=== PATIENT | male | born 1935 | race Caucasian/White ===

== ENCOUNTER → 2017-06-07 | Outpatient (CLI) | payer MEDICARE, BC ==
--- NOTE | 2017-06-08 13:37 | XCELERA REPORT ---
[address] [address] Lower Extremity Venous Evaluation Name: SHAD BLANTON Age: 82 yrs Gender: Male : 1935 Patient Status: Outpatient Patient Location: Study Date: 06/07/2017 04:57 PM Procedure: Color flow and duplex imaging of the veins of the right lower extremity as well as the left Common Femoral vein. Reason For Study: ACUTE EMBOLISM Ordering Physician: JAGDEEP BEGUM Performed By: Kassy Mckeon Right Sided Venous Evaluation Subcutaneous edema noted at the leg. Normal vessel filling wall to wall, compression and augmentation as well as Colour flow down to the infrageniculate veins. Left Sided Venous Evaluation The left common femoral vein is fully compressible. Spontaneous and phasic flow is present in the left common femoral vein. Interpretation Summary No duplex evidence of DVT or obstruction in the right lower extremity nor in the left Common Femoral vein. : JAGDEEP BEGUM > Win [employer]
== END ==
LOC: SP 16:41
PROVIDERS: ATTEND Podiatrist Foot & Ankle Surgery
DX: I82.401 Acute embolism and thrombosis of unspecified deep veins of right lower extremity (principal)
CPT/HCPCS: 93971

== ENCOUNTER 2018-04-21 16:49 | Emergency (ER) | payer MEDICARE, BC ==
--- NOTE | 2018-04-21 17:47 | ER Document Report ---
ED Medical Screen (RME) - General Chief Complaint: Foot Pain Stated Complaint: RIGHT FOOT PAIN Time Seen by Provider: 04/21/18 17:36 Mode of Arrival: Wheelchair Information source: Patient Notes: This is an 83-year-old man that was referred to the room by the foot doctor because of right lower extremity pain and swelling over the last 18 days. Patient denies any chest pain, shortness of breath, fever. Patient states he had a similar episode a few years ago and the ultrasound Doppler showed no obvious pathology. He states that the extremity is more swollen and he is experiencing more pain this time. Extremity is warm and there is unilateral swelling to the right side lower extremity. TRAVEL OUTSIDE OF THE [place] IN LAST 30 DAYS: No - Related Data Allergies/Adverse Reactions: No Known Allergies Allergy (Unverified 04/21/18 16:49) Past Medical History - Social History Frequency of alcohol use: None Drug Abuse: None Renal/ Medical History: Reports: Hx Kidney Stones. Denies: Hx Peritoneal Di alysis Physical Exam - Vital signs Vitals: Temp Pulse Resp BP Pulse Ox 97.9 F 107 H 14 156/69 H 98 04/21/18 17:12 04/21/18 17:12 04/21/18 17:12 04/21/18 17:12 04/21/18 17:12 Course - Vital Signs Vital signs: Temp Pulse Resp BP Pulse Ox 97.9 F 107 H 14 156/69 H 98 04/21/18 17:12 04/21/18 17:12 04/21/18 17:12 04/21/18 17:12 04/21/18 17:12 Doctor's Discharge - Discharge Referrals: JAGDEEP BEGUM DPM [Primary Care Provider] - Follow up as needed
[2018-04-21 18:08] LABS: ABSOLUTE EOSINOPHILS # (AUTO) 0.1 10^3/uL (0.0-0.6); ABSOLUTE MONOCYTES (AUTO) 0.8 10^3/uL (0.1-1.4); ABSOLUTE NEUT (AUTO) 6.5 10^3/uL (1.7-8.2); BASOPHILS % (AUTO) 0.3 % (0-2); EOSINOPHILS % (AUTO) 1.1 % (0-6); HEMATOCRIT 35.9 % (37.9-51.0); HEMOGLOBIN 12.2 g/dL (13.5-17.0); LYMPHOCYTES % (AUTO) 12.4 % (13-45); MEAN CORPUSCULAR HEMOGLOBIN 28.7 pg (27.0-33.4); MEAN CORPUSCULAR VOLUME 84 fl (80-97); MONOCYTES % (AUTO) 9.6 % (3-13); PLATELET COUNT 389 10^3/uL (150-450); RED BLOOD COUNT 4.26 10^6/uL (4.35-5.55); RED CELL DISTRIBUTION WIDTH 13.3 % (11.5-14.0); SEGMENTED NEUTROPHILS % (AUTO) 76.6 % (42-78); TOTAL CELLS COUNTED % (AUTO) 100 %; WHITE BLOOD COUNT 8.4 10^3/uL (4.0-10.5)
[2018-04-21 18:15] LABS: INTERNATIONAL RATION (INR) 0.99; PROTHROMBIN TIME 13.6 SEC (11.4-15.4)
[2018-04-21 18:41] LABS: ALANINE AMINOTRANSFERASE 26 U/L (21-72); ALBUMIN 3.7 g/dL (3.5-5.0); ALKALINE PHOSPHATASE 69 U/L (38-126); ANION GAP 8 (5-19); ASPARTATE AMINO TRANSFERASE 21 U/L (17-59); BILIRUBIN,DIRECT 0.3 mg/dL (0.0-0.4); BILIRUBIN,TOTAL 0.5 mg/dL (0.2-1.3); BLOOD UREA NITROGEN 23 mg/dL (7-20); CALCIUM 9.5 mg/dL (8.4-10.2); CARBON DIOXIDE 31 mmol/L (22-30); CHLORIDE 100 mmol/L (98-107); GLUCOSE 172 mg/dL (75-110); POTASSIUM 4.3 mmol/L (3.6-5.0); SODIUM 139.4 mmol/L (137-145)
[2018-04-21] MEDS ORDERED: OXYCODONE-ACETAMINOPHEN 5-325 MG TABLET PO ONE (19:25)
[2018-04-21] MEDS ORDERED: PREDNISONE 20 MG TABLET PO ONE (20:17)
[2018-04-21] MEDS ORDERED: KETOROLAC TROMETHAMINE INJ/PF 30 MG/1 ML SDV IV ONE (20:17)
[2018-04-21] MEDS ORDERED: CEPHALEXIN 500 MG CAPSULE PO ONE (20:19)
[2018-04-21] MEDS ORDERED: NORMAL SALINE 500 ML IV ONE (20:21)
--- NOTE | 2018-04-21 20:22 | RADIOLOGY REPORT (SQ) ---
EXAM DESCRIPTION: XR ANKLE 3 OR MORE VIEWS COMPLETED DATE/TME: 04/21/2018 19:22 CLINICAL HISTORY: 83 years, Male, right ankle swelling Findings: Bony alignment is anatomic. No fracture or dislocation. Ankle mortise is not widened. Mild diffuse soft tissue swelling. IMPRESSION: No fracture.
--- NOTE | 2018-04-21 20:22 | ER Document Report ---
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 Patient reports increasing pain with ambulation. He denies any fever, chills, nausea, vomiting, spreading of redness, fall or injury. Patient has had prior similar symptoms approximately 9 months ago without definitive diagnosis. TRAVEL OUTSIDE OF THE [place] IN LAST 30 DAYS: No - HPI Onset: Other Onset/Duration: Persistent, Worse Quality of pain: Throbbing Severity: Moderate Pain Level: 2 Associated symptoms: Leg swelling. denies: Chills, Nonproductive cough, Productive cough, Fever, Nausea, Vomiting, Shortness of breath Exacerbated by: Movement, Walking Relieved by: Denies Similar symptoms previously: Yes Recently seen / treated by doctor: Yes - Podiatry today - Related Data Allergies/Adverse Reactions: No Known Allergies Allergy (Unverified 04/21/18 16:49) Past Medical History - General Information source: Patient - Social History Smoking Status: Never Smoker Frequency of alcohol use: None Drug Abuse: None Lives with: Family Family History: Reviewed & Not Pertinent Patient has suicidal ideation: No Patient has homicidal ideation: No - Medical History Medical History: Negative Renal/ Medical History: Reports: Hx Kidney Stones. Denies: Hx Peritoneal Dialysis Review of Systems - Review of Systems Notes: REVIEW OF SYSTEMS: CONSTITUTIONAL : Denies fever, chills, or sweats. Denies recent illness. Denies weight loss, recent hospitalizations. EENT: Denies visual changes, eye pain. Denies sore throat, oral lesions, difficulty swallowing. CARDIOVASCULAR: Denies chest pain. Denies palpitations. Denies lower extremity edema. RESPIRATORY: Denies cough. Denies shortness of breath, wheezing. GASTROINTESTINAL: Denies abdominal pain or distention. Denies nausea, vomiting, or diarrhea. Denies blood in vomitus, stools, or per rectum. Denies black, tarry stools. Denies constipation. GENITOURINARY: Denies difficulty urinating, painful urination, frequency, blood in urine, testicular pain or penile discharge. MUSCULOSKELETAL: Denies back or neck pain or stiffness. SKIN: Denies rash, lesions or sores. HEMATOLOGIC : Denies easy bruising or bleeding. LYMPHATIC: Denies swollen glands. NEUROLOGICAL: Denies confusion or altered mental status. Denies loss of consciousness. Denies dizziness or lightheadedness. Denies headache. Denies weakness or paralysis. Denies problems difficulty with ambulation, slurred speech. Denies sensory loss, numbness, or tingling. Denies seizures. PSYCHIATRIC: Denies anxiety or stress. Denies depression, suicidal ideation, or Physical Exam - Vital signs Vitals: Temp Pulse Resp BP Pulse Ox 97.9 F 107 H 14 156/69 H 98 04/21/18 17:12 04/21/18 17:12 04/21/18 17:12 04/21/18 17:12 04/21/18 17:12 Interpretation: Hypertensive. No: Febrile - Notes Notes: PHYSICAL EXAMINATION: GENERAL: Well-appearing, well-nourished and in no acute distress. HEAD: Atraumatic, normocephalic. EYES: Pupils equal round and reactive to light, extraocular movements intact, sclera anicteric, conjunctiva are normal. ENT: Nares patent, oropharynx clear without exudates. Moist mucous membranes. NECK: Normal range of motion, supple without lymphadenopathy LUNGS: Breath sounds clear to auscultation bilaterally and equal. No wheezes rales or rhonchi. HEART: Regular rate and rhythm without murmurs ABDOMEN: Soft, nontender, nondistended abdomen. No guarding, no rebound. No masses appreciated. Musculoskeletal: Normal range of motion, right lower extremity with nonpitting edema, no cyanosis. Right ankle is erythematous, warm to touch and tender with palpation to the lateral aspect. NEUROLOGICAL: Cranial nerves grossly intact. Normal speech, normal gait. Normal sensory, motor exams PSYCH: Normal mood, normal affect. SKIN: Erythema over the right lateral malleolus. No skin breaks. Course - Re-evaluation Re-evalutation: Laboratory 04/21/18 04/21/18 04/21/18 17:54 17:54 17:54 WBC 8.4 RBC 4.26 L Hgb 12.2 L Hct 35.9 L MCV 84 MCH 28.7 MCHC 34.0 RDW 13.3 Plt Count 389 Seg Neutrophils % 76.6 Lymphocytes % 12.4 L Monocytes % 9.6 Eosinophils % 1.1 Basophils % 0.3 Absolute Neutrophils 6.5 Absolute Lymphocytes 1.0 Absolute Monocytes 0.8 Absolute Eosinophils 0.1 Absolute Basophils 0.0 PT 13.6 INR 0.99 Sodium 139.4 Potassium 4.3 Chloride 100 Carbon Dioxide 31 H Anion Gap 8 BUN 23 H Creatinine 0.84 Est GFR ( Amer) > 60 Est GFR (Non-Af Amer) > 60 Glucose 172 H Calcium 9.5 Total Bilirubin 0.5 Direct Bilirubin 0.3 Neonat Total Bilirubin Not Reportable Neonat Direct Bilirubin Not Reportable Neonat Indirect Bili Not Reportable AST 21 ALT 26 Alkaline Phosphatase 69 Total Protein 6.0 L Albumin 3.7 Ankle X-Ray 04/21/18 19:22 IMPRESSION: No fracture. Tibia/Fibula X-Ray 04/21/18 19:22 IMPRESSION: No fracture. Laboratory 04/21/18 04/21/18 04/21/18 17:54 17:54 17:54 WBC 8.4 RBC 4.26 L Hgb 12.2 L Hct 35.9 L MCV 84 MCH 28.7 MCHC 34.0 RDW 13.3 Plt Count 389 Seg Neutrophils % 76.6 Lymphocytes % 12.4 L Monocytes % 9.6 Eosinophils % 1.1 Basophils % 0.3 Absolute Neutrophils 6.5 Absolute Lymphocytes 1.0 Absolute Monocytes 0.8 Absolute Eosinophils 0.1 Absolute Basophils 0.0 PT 13.6 INR 0.99 Sodium 139.4 Potassium 4.3 Chloride 100 Carbon Dioxide 31 H Anion Gap 8 BUN 23 H Creatinine 0.84 Est GFR ( Amer) > 60 Est GFR (Non-Af Amer) > 60 Glucose 172 H Calcium 9.5 Total Bilirubin 0.5 Direct Bilirubin 0.3 Neonat Total Bilirubin Not Reportable Neonat Direct Bilirubin Not Reportable Neonat Indirect Bili Not Reportable AST 21 ALT 26 Alkaline Phosphatase 69 Total Protein 6.0 L Albumin 3.7 Ankle X-Ray 04/21/18 19:22 IMPRESSION: No fracture. Tibia/Fibula X-Ray 04/21/18 19:22 IMPRESSION: No fracture. Temp Pulse Resp BP Pulse Ox 98.4 F 102 H 16 113/52 L 97 04/21/18 21:41 04/21/18 21:41 04/21/18 21:41 04/21/18 21:41 04/21/18 21:41 83-year-old male presents with right lower extremity swelling, erythema that has been present for 3 weeks.. The erythema is located on the lateral aspect of the patient's right ankle and reportedly has not spread over the last 3 weeks but has become increasingly more painful. Vital signs reviewed and within normal. Patient did receive oxycodone prior to my exam and reports significant improvement in pain. X-rays show no evidence of fracture of the right lower extremity. Ultrasound is negative for DVT. Exam is more consistent with gout than cellulitis. CBC, CMP are unremarkable. Patient is well-appearing. Patient started on Mobic, low-dose prednisone, short course of Virgil as needed for breakthrough pain and Keflex as the family members are persistent that this is a skin infection. I explained to the family that if this was a cellulitis that I would expect it to have spread rapidly over the last few weeks and I would expect the patient to be more ill-appearing. Patient was evaluated and treated as appropriate for the patient's presenting symptoms and complaint, with consideration of any critical or life threatening conditions that may be associated with their obtained history and exam as noted above. All results were discussed with patient . Patient provided the opportunity to ask questions, and express concerns. Patient was educated on treatments based on their presumed diagnosis as noted above. At this time we will discharge the patient with return precautions and follow-up recommendations. Verbal discharge instructions given a the bedside. Medication warnings reviewed. Patient is in agreement with this plan and has verbalized understanding of return precautions. After careful consideration I feel that that patient can be safely discharged from the emergency department, they were advised to followup with a primary care physician in 2-3 days. Dictation on this chart was performed using voice recognition software and may result in unintended grammatical, spelling, syntax or errors. 04/21/18 20:22 Ultrasound of the lower extremity was performed and negative for DVT. 04/22/18 11:45 - Vital Signs Vital signs: Temp Pulse Resp BP Pulse Ox 98.4 F 102 H 16 113/52 L 97 04/21/18 21:41 04/21/18 21:41 04/21/18 21:41 04/21/18 21:41 04/21/18 21:41 - Laboratory Result Diagrams: 04/21/18 17:54 04/21/18 17:54 Laboratory results interpreted by me: 04/21/18 04/21/18 17:54 17:54 RBC 4.26 L Hgb 12.2 L Hct 35.9 L Lymphocytes % 12.4 L Carbon Dioxide 31 H BUN 23 H Glucose 172 H Total Protein 6.0 L - Diagnostic Test Radiology reviewed: Image reviewed, Reports reviewed Discharge - Discharge Clinical Impression: Acute pain of right lower extremity, Elevated blood pressure reading Gout attack Qualifiers: Gout site: ankle Gout etiology: unspecified cause Laterality: right Qualified Code(s): M10.9 - Gout, unspecified Cellulitis Qualifiers: Site of cellulitis: extremity Site of cellulitis of extremity: lower extremity Laterality: right Qualified Code(s): L03.115 - Cellulitis of right lower limb Condition: Good Disposition: HOME, SELF-CARE Instructions: Cellulitis ([facility]), Gout ([facility]), Gout Diet ([facility]) Additional Instructions: The rash is likely due to infection of your skin. You need to take the antibiotics as prescribed. Do not stop even if the rash goes away until you have completed all the antibiotics. The area of redness was traced out here in the emergency department with a marking pen. You need to return to emergency department if the redness spreads outside of this area by more than 2 cm in any direction. You should also return if you develop fevers with temperature gr eater than 101, persistent vomiting, worsening pain, or have any other symptoms that are concerning to you. Prescriptions: Hydrocodone/Acetaminophen [Virgil 5-325 mg Tablet] 1 tab PO Q8H #10 tablet Meloxicam [Mobic] 15 mg PO DAILY #10 tablet Omeprazole 20 mg PO DAILY #14 tablet. Prednisone [Deltasone 20 mg Tablet] 2 tab PO DAILY 5 Days #10 tablet Forms: Elevated Blood Pressure Referrals: JAGDEEP BEGUM DPM [ACTIVE STAFF] - Follow up as needed
--- NOTE | 2018-04-21 20:26 | RADIOLOGY REPORT (SQ) ---
EXAM DESCRIPTION: XR TIBIA FIBULA 2 VIEWS COMPLETED DATE/TME: 04/21/2018 19:22 CLINICAL HISTORY: 83 years, Male, right foot swelling Findings: Bony alignment is anatomic. No fracture or dislocation. Mild diffuse soft tissue swelling. IMPRESSION: No fracture.
[2018-04-21 21:56] VITALS: BP 113/52
--- NOTE | 2018-04-22 08:21 | XCELERA REPORT ---
[address] [facility] [address] Lower Extremity Venous Evaluation Procedure: Color flow and duplex imaging of the veins of the right lower extremity as well as the left Common Femoral vein. Right Sided Venous Evaluation Normal vessel filling wall to wall, compression and augmentation as well as Colour flow down to the infrageniculate veins. Left Sided Venous Evaluation The left common femoral vein is fully compressible. Spontaneous and phasic flow is present in the left common femoral vein. Interpretation Summary No duplex evidence of DVT or obstruction in the right lower extremity nor in the left Common Femoral vein. Name: SHAD BLANTON Age: 83 yrs Gender: Male : 1935 Patient Status: Preadmit Patient Location: ER Study Date: 04/21/2018 06:28 PM Reason For Study: right lower extremity pain and swelling Ordering Physician: GERRI BREWSTER Performed By: Monique Weldon : GERRI BREWSTER > Win [employer]
== END 2018-04-21 21:56 | disposition home or self-care (01) ==
LOC: ER 16:49
DX: M79.661 Pain in right lower leg (principal); M10.9 Gout, unspecified; L03.115 Cellulitis of right lower limb; R03.0 Elevated blood-pressure reading, without diagnosis of hypertension; Z87.442 Personal history of urinary calculi
CPT/HCPCS: 99284; 96361; 96374; 36415; 85025; 85610; 80053; 93971 ×2; 73610; 73590; A9270 ×3; J1885; J7040; J7512

== ENCOUNTER → 2018-05-04 | Outpatient (CLI) | payer MEDICARE, BC ==
[2018-05-04 16:27] LABS: ABSOLUTE EOSINOPHILS # (AUTO) 0.2 10^3/uL (0.0-0.6); ABSOLUTE MONOCYTES (AUTO) 0.7 10^3/uL (0.1-1.4); ABSOLUTE NEUT (AUTO) 4.5 10^3/uL (1.7-8.2); BASOPHILS % (AUTO) 0.7 % (0-2); EOSINOPHILS % (AUTO) 2.3 % (0-6); HEMATOCRIT 37.4 % (37.9-51.0); HEMOGLOBIN 12.6 g/dL (13.5-17.0); LYMPHOCYTES % (AUTO) 26.5 % (13-45); MEAN CORPUSCULAR HEMOGLOBIN 28.2 pg (27.0-33.4); MEAN CORPUSCULAR HGB CONC 33.5 g/dL (32.0-36.0); MEAN CORPUSCULAR VOLUME 84 fl (80-97); MONOCYTES % (AUTO) 9.4 % (3-13); PLATELET COUNT 468 10^3/uL (150-450); RED BLOOD COUNT 4.46 10^6/uL (4.35-5.55); RED CELL DISTRIBUTION WIDTH 13.7 % (11.5-14.0); SEGMENTED NEUTROPHILS % (AUTO) 61.1 % (42-78); TOTAL CELLS COUNTED % (AUTO) 100 %; WHITE BLOOD COUNT 7.4 10^3/uL (4.0-10.5)
[2018-05-04 16:38] LABS: ANION GAP 10 (5-19); BLOOD UREA NITROGEN 26 mg/dL (7-20); C-REACTIVE PROTEIN 27.1 mg/L (<10.0); CALCIUM 10.1 mg/dL (8.4-10.2); CARBON DIOXIDE 30 mmol/L (22-30); CHLORIDE 102 mmol/L (98-107); GLUCOSE 80 mg/dL (75-110); POTASSIUM 4.5 mmol/L (3.6-5.0); SODIUM 142.4 mmol/L (137-145); URIC ACID 3.3 mg/dL (3.5-8.5)
[2018-05-04 17:16] LABS: ERYTHROCYTE SEDIMENTATION RATE 59 mm/hr (0-20)
== END ==
LOC: OD 14:34
PROVIDERS: ATTEND Orthopaedic Surgery
DX: M25.571 Pain in right ankle and joints of right foot (principal)
CPT/HCPCS: 36415; 80048; 84550; 85025; 85652; 86140

== ENCOUNTER → 2018-06-21 | Outpatient (CLI) | payer MEDICARE, BC ==
[2018-06-21 14:49] LABS: ABSOLUTE EOSINOPHILS # (AUTO) 0.1 10^3/uL (0.0-0.6); ABSOLUTE LYMPHOCYTES (AUTO) 0.8 10^3/uL (0.5-4.7); ABSOLUTE MONOCYTES (AUTO) 0.5 10^3/uL (0.1-1.4); ABSOLUTE NEUT (AUTO) 6.1 10^3/uL (1.7-8.2); BASOPHILS % (AUTO) 0.5 % (0-2); EOSINOPHILS % (AUTO) 1.1 % (0-6); HEMATOCRIT 28.3 % (37.9-51.0); HEMOGLOBIN 9.5 g/dL (13.5-17.0); LYMPHOCYTES % (AUTO) 11.2 % (13-45); MEAN CORPUSCULAR HEMOGLOBIN 25.8 pg (27.0-33.4); MEAN CORPUSCULAR HGB CONC 33.7 g/dL (32.0-36.0); MEAN CORPUSCULAR VOLUME 77 fl (80-97); MONOCYTES % (AUTO) 6.4 % (3-13); PLATELET COUNT 424 10^3/uL (150-450); RED BLOOD COUNT 3.69 10^6/uL (4.35-5.55); RED CELL DISTRIBUTION WIDTH 14.1 % (11.5-14.0); SEGMENTED NEUTROPHILS % (AUTO) 80.8 % (42-78); TOTAL CELLS COUNTED % (AUTO) 100 %; WHITE BLOOD COUNT 7.5 10^3/uL (4.0-10.5)
[2018-06-21 15:12] LABS: ANION GAP 9 (5-19); BLOOD UREA NITROGEN 17 mg/dL (7-20); C-REACTIVE PROTEIN 72.5 mg/L (<10.0); CALCIUM 9.4 mg/dL (8.4-10.2); CARBON DIOXIDE 34 mmol/L (22-30); CHLORIDE 99 mmol/L (98-107); GLUCOSE 92 mg/dL (75-110); SODIUM 141.9 mmol/L (137-145)
[2018-06-21 15:32] LABS: ERYTHROCYTE SEDIMENTATION RATE 105 mm/hr (0-20)
== END ==
LOC: OD 14:14
PROVIDERS: ATTEND Orthopaedic Surgery
DX: M25.571 Pain in right ankle and joints of right foot (principal)
CPT/HCPCS: 36415; 80048; 85025; 85652; 86140

== ENCOUNTER 2018-06-27 08:52 | Inpatient (IN) | payer MEDICARE, BC ==
--- NOTE | 2018-06-27 09:53 | RADIOLOGY REPORT (SQ) ---
EXAM DESCRIPTION: CHEST SINGLE VIEW COMPLETED DATE/TIME: 06/27/2018 9:48 am REASON FOR STUDY: PREOP COMPARISON: None. EXAM PARAMETERS: NUMBER OF VIEWS: One view. TECHNIQUE: Single frontal radiographic view of the chest acquired. RADIATION DOSE: NA LIMITATIONS: None. FINDINGS: LUNGS AND PLEURA: No opacities, masses or pneumothorax. No pleural effusion. MEDIASTINUM AND HILAR STRUCTURES: No masses. Contour normal. HEART AND VASCULAR STRUCTURES: Heart normal in size. Tortuous thoracic aorta. BONES: No acute findings. HARDWARE: None in the chest. OTHER: No other significant finding. IMPRESSION: No acute abnormality of the lungs in AP projection. TECHNICAL DOCUMENTATION: JOB ID: [id number] [employer]- All Rights Reserved Reading location - IP/workstation name: [email or web address]
[2018-06-27] MEDS ORDERED: POTASSI CL 20 MEQ/50 ML RIDER 20 MEQ/50 ML RTUPB IV ONE (10:57)
[2018-06-27] MEDS ORDERED: FENTANYL CITRATE INJ/PF 100 MCG/2 ML AMPUL ONE (11:13)
[2018-06-27] MEDS ORDERED: MIDAZOLAM 2 MG/2 ML INJ ONE (11:13)
[2018-06-27] MEDS ORDERED: PROPOFOL INJ 200 MG/20 ML VIAL IV ONE (11:13)
[2018-06-27] MEDS ORDERED: BUPIVACAINE HCL 0.25% /EPINEPHRINE INJ/PF 30 ML SDV ONE (11:21)
[2018-06-27] MEDS ORDERED: PROMETHAZINE HCL INJ 25 MG/1 ML VIAL IV PRN (12:22)
[2018-06-27] MEDS ORDERED: MEPERIDINE HCL/PF INJ 25 MG/1 ML DISP.SYRIN IV PRN (12:22)
[2018-06-27] MEDS ORDERED: FENTANYL CITRATE INJ/PF 100 MCG/2 ML AMPUL IV PRN ×3 (12:22)
[2018-06-27] MEDS ORDERED: DIPHENHYDRAMINE HCL 50 MG/ML VIAL IV PRN (12:22)
[2018-06-27] MEDS ORDERED: BACITRACIN INJ 50,000 UNIT VIAL ONE (12:23)
[2018-06-27 12:31] LABS: APPEARANCE,URINE SLIGHTLY-CLOUDY; BILIRUBIN,URINE NEGATIVE (NEGATIVE); COLOR,URINE YELLOW; GLUCOSE, URINE NEGATIVE (NEGATIVE); KETONES,URINE NEGATIVE (NEGATIVE); LEUKOCYTE ESTERASE,URINE NEGATIVE (NEGATIVE); NITRITE,URINE NEGATIVE (NEGATIVE); PROTEIN,URINE 100 mg/dL (NEGATIVE); URINE SPECIFIC GRAVITY 1.019; UROBILINOGEN,URINE NEGATIVE mg/dL (<2.0)
--- NOTE | 2018-06-27 12:46 | Operative Report ---
Operative Report DATE OF SURGERY: 06/27/18 PREOPERATIVE DIAGNOSIS: Pyarthrosis right ankle OPERATION: Irrigation debridement arthrotomy of ankle including skin, dermis, fascia, and synovium SURGEON: LAURY GUO ANESTHESIA: GA TISSUE REMOVED OR ALTERED: Cultures x2 to microbiology. Synovium to pathology. ESTIMATED BLOOD LOSS: Minimal PROCEDURE: With the patient supine and operative table the right lower extremities prepped and draped in sterile fashion. Limb is elevated for exsanguination. Tourniquet inflated 280 torr. Longitudinal incisions made over the anterior tibialis tendon and sharp dissection was carried this carried the incision through the tendon sheath, retracting the anterior tibialis and medially, and then extending into the underlying joint. Cultures have taken the underlying joint fluid. There is an aggressive synovectomy performed using a rondure. This is sent to pathology for evaluation. The wound is then irrigated with 3 L normal saline containing bacitracin using pulse lavage. The tourniquet is deflated. Hemostasis obtained. The incision is packed using iodoform gauze. The proximal and distal aspects are reapproximated interrupted nylon. A sterile compressive dressing posterior plaster splint were applied. The patient's return to PACU in satisfactory condition.
[2018-06-27] MEDS ORDERED: MORPHINE SULFATE 10 MG/ML INJ IV PRN (12:59)
[2018-06-27] MEDS ORDERED: OXYCODONE HCL IR 5 MG TABLET PO PRN (13:00)
[2018-06-27] MEDS ORDERED: ONDANSETRON 4 MG TAB.RAPDIS PO PRN (13:00)
[2018-06-27] MEDS ORDERED: ACETAMINOPHEN 1,000 MG/100 ML RTUPB IV ONE (13:15)
[2018-06-27] MEDS ORDERED: LATANOPROST OP SCH (16:15)
[2018-06-27] MEDS ORDERED: TIMOLOL MALEATE OP SCH (16:15)
[2018-06-27] MEDS ORDERED: [UNRECOGNIZED DRUG - OTHER] OP SCH (16:15)
[2018-06-27] MEDS: CEFTRIAXONE 2 GM/D5W RTU 2 GM/50 ML RTUPB IV SCH (17:16)
[2018-06-27] MEDS: RINGERS SOLUTION,LACTATED 1,000 ML IV PRN (17:20)
[2018-06-27] MEDS ORDERED: POTASSIUM CHLORIDE 20 MEQ/50 ML RTU IV ONE (18:30)
--- NOTE | 2018-06-27 21:22 | EKG REPORT ---
SEVERITY:- ABNORMAL ECG - SINUS RHYTHM VENTRICULAR PREMATURE COMPLEX RIGHT BUNDLE BRANCH BLOCK : Confirmed by: Gia Ray MD 27-Jun-2018 21:22:14
[2018-06-27 21:54] LABS: ANION GAP 8 (5-19); BLOOD UREA NITROGEN 18 mg/dL (7-20); CALCIUM 8.9 mg/dL (8.4-10.2); CARBON DIOXIDE 32 mmol/L (22-30); CHLORIDE 99 mmol/L (98-107); GLUCOSE 150 mg/dL (75-110); POTASSIUM 3.2 mmol/L (3.6-5.0); SODIUM 139.1 mmol/L (137-145)
[2018-06-27] MEDS ORDERED: POTASSIUM CHLORIDE 10 MEQ CAPSULE.ER PO ONE (23:00)
[2018-06-27] MEDS ORDERED: POTASSIUM CHLORIDE 10 MEQ CAPSULE.ER PO SCH (23:00)
[2018-06-28] MEDS: RINGERS SOLUTION,LACTATED 1,000 ML IV PRN ×3 (01:02→20:21)
[2018-06-28] MEDS ORDERED: POTASSIUM CHLORIDE 10 MEQ CAPSULE.ER PO ONE ×2 (01:12→10:00)
[2018-06-28] MEDS: ACETAMINOPHEN 325 MG TABLET PO PRN ×3 (01:14→15:13)
[2018-06-28 05:37] LABS: ABSOLUTE MONOCYTES (AUTO) 0.5 10^3/uL (0.1-1.4); BASOPHILS % (AUTO) 0.5 % (0-2); EOSINOPHILS % (AUTO) 0.5 % (0-6); HEMATOCRIT 24.4 % (37.9-51.0); HEMOGLOBIN 8.2 g/dL (13.5-17.0); LYMPHOCYTES % (AUTO) 13.7 % (13-45); MEAN CORPUSCULAR HEMOGLOBIN 25.9 pg (27.0-33.4); MEAN CORPUSCULAR HGB CONC 33.6 g/dL (32.0-36.0); MEAN CORPUSCULAR VOLUME 77 fl (80-97); MONOCYTES % (AUTO) 6.6 % (3-13); PLATELET COUNT 243 10^3/uL (150-450); RED BLOOD COUNT 3.16 10^6/uL (4.35-5.55); RED CELL DISTRIBUTION WIDTH 15.1 % (11.5-14.0); SEGMENTED NEUTROPHILS % (AUTO) 78.7 % (42-78); TOTAL CELLS COUNTED % (AUTO) 100 %; WHITE BLOOD COUNT 7.6 10^3/uL (4.0-10.5)
[2018-06-28 06:15] LABS: ANION GAP 9 (5-19); BLOOD UREA NITROGEN 16 mg/dL (7-20); CALCIUM 8.7 mg/dL (8.4-10.2); CARBON DIOXIDE 29 mmol/L (22-30); CHLORIDE 101 mmol/L (98-107); GLUCOSE 95 mg/dL (75-110); POTASSIUM 3.2 mmol/L (3.6-5.0); SODIUM 138.7 mmol/L (137-145)
[2018-06-28 06:36] LABS: ERYTHROCYTE SEDIMENTATION RATE 84 mm/hr (0-20)
--- NOTE | 2018-06-28 06:45 | PDOC CONSULTATION ---
Consultation Attending physician:: LAURY GUO Consult reason:: Hypokalemia History of Present Illness Patient complains of: Right ankle pain History of Present Illness: SHAD BLANTON is a 83 year old male without significant past medical history with exception to right ankle inflammation and pain who is observed overnight following same-day surgery arthroscopy, irrigation and debridement of the right ankle. Labs reveal hypokalemia for which he has received 20 mEq of potassium x2 without significant improvement. Patient denies knowledge of previous hypokalemia, generalized weakness, recent change in medications, diet supplements, excessive caffeine or diarrhea. Past Medical History Cardiac Medical History: Denies: Coronary Artery Disease, Myocardial Infarction, Hypertension Pulmonary Medical History: Denies: Asthma, Bronchitis, Chronic Obstructive Pulmonary Disease (COPD), Pneumonia Neurological Medical History: Denies: Seizures Musculoskeltal Medical History: Denies: Arthritis Hematology: Denies: Anemia Social History Information Source: Patient, Relative Lives with: Spouse/Significant other Smoking Status: Never Smoker Frequency of Alcohol Use: None Hx Recreational Drug Use: No Hx Prescription Drug Abuse: No - Advance Directive Resuscitation Status: Full Code Family History Family History: Hypertension Parental Family History Reviewed: No Children Family History Reviewed: No Sibling(s) Family History Reviewed.: No Medication/Allergy Home Medications: Indomethacin [Indomethacin ER] 75 mg PO DAILY 06/24/18 Timolol Maleate/Latanoprost/Pf [Timolol 0.5%-Latanopros 0.005%] 5 ml OP DAILY 06/24/18 Ibuprofen [Motrin 400 mg Tablet] 400 mg PO TID 06/27/18 Allergies/Adverse Reactions: No Known Allergies Allergy (Unverified 04/21/18 16:49) Review of Systems Constitutional: ABSENT: chills, fever(s), headache(s), weight gain, weight loss Eyes: ABSENT: visual disturbances Ears: ABSENT: hearing changes Cardiovascular: ABSENT: chest pain, dyspnea on exertion, edema, orthropnea, palpitations Respiratory: ABSENT: cough, hemoptysis Gastrointestinal: ABSENT: abdominal pain, constipation, diarrhea, hematemesis, hematochezia, nausea, vomiting Genitourinary: ABSENT: dysuria, hematuria Musculoskeletal: ABSENT: joint swelling Integumentary: ABSENT: rash, wounds Neurological: ABSENT: abnormal gait, abnormal speech, confusion, dizziness, focal weakness, syncope Psychiatric: ABSENT: anxiety, depression, homidical ideation, suicidal ideation Endocrine: ABSENT: cold intolerance, heat intolerance, polydipsia, polyuria Hematologic/Lymphatic: ABSENT: easy bleeding, easy bruising Physical Exam Vital Signs: Temp Pulse Resp BP Pulse Ox 98.7 F 101 H 18 150/76 H 96 06/27/18 23:52 06/27/18 23:52 06/27/18 23:52 06/27/18 23:52 06/27/18 23:52 Intake & Output 06/26/18 06/27/18 06/28/18 11:59 11:59 11:59 Intake Total 0 5340 Output Total 3005 Balance 0 2335 Weight 74.84 kg 79 kg General appearance: PRESENT: no acute distress, well-developed, well-nourished Head exam: PRESENT: atraumatic, normocephalic Eye exam: PRESENT: conjunctiva pink, EOMI, PERRLA. ABSENT: scleral icterus Ear exam: PRESENT: normal external ear exam Mouth exam: PRESENT: moist, tongue midline Neck exam: ABSENT: carotid bruit, JVD, lymphadenopathy, thyromegaly Respiratory exam: PRESENT: clear to auscultation sharonda. ABSENT: rales, rhonchi, wheezes Cardiovascular exam: PRESENT: RRR. ABSENT: diastolic murmur, rubs, systolic murmur Pulses: PRESENT: normal dorsalis pedis pul Vascular exam: PRESENT: normal capillary refill GI/Abdominal exam: PRESENT: normal bowel sounds, soft. ABSENT: distended, guarding, mass, organolmegaly, rebound, tenderness Rectal exam: PRESENT: deferred Extremities exam: PRESENT: full ROM. ABSENT: calf tenderness, clubbing, pedal edema Musculoskeletal exam: PRESENT: other - Right lower extremity splinted Neurological exam: PRESENT: alert, awake, oriented to person, oriented to place, oriented to time, oriented to situation, CN II-XII grossly intact. ABSENT: m otor sensory deficit Psychiatric exam: PRESENT: appropriate affect, normal mood. ABSENT: homicidal ideation, suicidal ideation Skin exam: PRESENT: dry, intact, warm. ABSENT: cyanosis, rash Results Laboratory Results: 06/28/18 04:39 06/28/18 04:39 06/27/18 06/27/18 06/27/18 10:05 12:05 16:39 WBC RBC Hgb Hct MCV MCH MCHC RDW Plt Count Seg Neutrophils % Lymphocytes % Monocytes % Eosinophils % Basophils % Absolute Neutrophils Absolute Lymphocytes Absolute Monocytes Absolute Eosinophils Absolute Basophils Sodium Potassium 2.8 L* 2.9 L* Chloride Carbon Dioxide Anion Gap BUN Creatinine Est GFR ( Amer) Est GFR (Non-Af Amer) Glucose Calcium Magnesium Urine Color YELLOW Urine Appearance SLIGHTLY-CLOUDY Urine pH 6.0 Ur Specific [place] 1.019 Urine Protein 100 H Urine Glucose (UA) NEGATIVE Urine Ketones NEGATIVE Urine Blood SMALL H Urine Nitrite NEGATIVE Ur Leukocyte Esterase NEGATIVE Urine WBC (Auto) 3 Urine RBC (Auto) 2 06/27/18 06/27/18 06/28/18 16:39 16:39 04:39 WBC 7.6 RBC 3.16 L Hgb 8.2 L Hct 24.4 L MCV 77 L MCH 25.9 L MCHC 33.6 RDW 15.1 H Plt Count 243 Seg Neutrophils % 78.7 H Lymphocytes % 13.7 Monocytes % 6.6 Eosinophils % 0.5 Basophils % 0.5 Absolute Neutrophils 6.0 Absolute Lymphocytes 1.0 Absolute Monocytes 0.5 Absolute Eosinophils 0.0 Absolute Basophils 0.0 Sodium 139.1 Potassium 3.2 L Chloride 99 Carbon Dioxide 32 H Anion Gap 8 BUN 18 Creatinine 0.80 Est GFR ( Amer) > 60 Est GFR (Non-Af Amer) > 60 Glucose 150 H Calcium 8.9 Magnesium 1.9 Urine Color Urine Appearance Urine pH Ur Specific [place] Urine Protein Urine Glucose (UA) Urine Ketones Urine Blood Urine Nitrite Ur Leukocyte Esterase Urine WBC (Auto) Urine RBC (Auto) 06/28/18 04:39 WBC RBC Hgb Hct MCV MCH MCHC RDW Plt Count Seg Neutrophils % Lymphocytes % Monocytes % Eosinophils % Basophils % Absolute Neutrophils Absolute Lymphocytes Absolute Monocytes Absolute Eosinophils Absolute Basophils Sodium 138.7 Potassium 3.2 L Chloride 101 Carbon Dioxide 29 Anion Gap 9 BUN 16 Creatinine 0.71 Est GFR ( Amer) > 60 Est GFR (Non-Af Amer) > 60 Glucose 95 Calcium 8.7 Magnesium Urine Color Urine Appearance Urine pH Ur Specific [place] Urine Protein Urine Glucose (UA) Urine Ketones Urine Blood Urine Nitrite Ur Leukocyte Esterase Urine WBC (Auto) Urine RBC (Auto) Impressions: Chest X-Ray 06/27/18 00:00 IMPRESSION: No acute abnormality of the lungs in AP projection. Assessment and Plan - Diagnosis (1) Hypokalemia Is this a current diagnosis for this admission?: Yes Plan: Most likely secondary to hematopoiesis given a 2.5 g loss over the last 2 months. Poor p.o. potassium intake likely contributing. Will replete by IV and recommend increased potassium diet with follow-up CBC and and chemistry in 5 days. (2) Anemia Is this a current diagnosis for this admission?: Yes Plan: Likely secondary to chronic disease involving inflammatory joint. Follow-up follow-up labs - Time Time Spent with patient: 15-24 minutes
[2018-06-28 07:10] LABS: C-REACTIVE PROTEIN 66.2 mg/L (<10.0)
[2018-06-28 07:46] LABS: ABSOLUTE RETICS # 0.047 10^6/uL (0.028-0.122); RETICULOCYTE COUNT (AUTO) 1.48 % (0.66-2.85)
[2018-06-28] MEDS: POTASSI CL 20 MEQ/50 ML RIDER 20 MEQ/50 ML RTUPB IV SCH ×2 (07:56→09:53)
[2018-06-28 09:03] LABS: IRON(TIBC) < 10.1 ug/dL (49-181)
[2018-06-28] MEDS: CEFTRIAXONE 2 GM/D5W RTU 2 GM/50 ML RTUPB IV SCH (17:07)
--- NOTE | 2018-06-28 19:44 | PDOC PROGRESS REPORT ---
Subjective Progress Note for:: 06/28/18 Subjective:: The patient is lying in the bed. He is sleeping but arousable. It was difficult to get a review of systems as he was so drowsy. He is telling me that he is having some pain. Reason For Visit: S/P I&D RIGHT ANKLE Physical Exam Vital Signs: Temp Pulse Resp BP Pulse Ox 98.7 F 101 H 18 150/76 H 96 06/27/18 23:52 06/27/18 23:52 06/27/18 23:52 06/27/18 23:52 06/27/18 23:52 Intake & Output 06/27/18 06/28/18 06/29/18 06:59 06:59 06:59 Intake Total 5562 1769 Output Total 3005 Balance 2557 1769 Weight 79 kg General appearance: PRESENT: no acute distress, thin Head exam: PRESENT: atraumatic, normocephalic Respiratory exam: PRESENT: clear to auscultation sharonda. ABSENT: rales, rhonchi, wheezes Cardiovascular exam: PRESENT: RRR. ABSENT: diastolic murmur, rubs, systolic murmur GI/Abdominal exam: PRESENT: normal bowel sounds, soft. ABSENT: distended, guarding, mass, organolmegaly, rebound, tenderness Rectal exam: PRESENT: deferred Extremities exam: PRESENT: other - Dressing in place Musculoskeletal exam: PRESENT: other Neurological exam: PRESENT: alert, awake, oriented to person, oriented to place, oriented to time, oriented to situation, CN II-XII grossly intact. ABSENT: motor sensory deficit Psychiatric exam: PRESENT: appropriate affect, normal mood. ABSENT: homicidal ideation, suicidal ideation Skin exam: PRESENT: dry, intact, warm. ABSENT: cyanosis, rash Results Laboratory Results: 06/28/18 04:39 06/28/18 04:39 06/27/18 06/27/18 06/28/18 16:39 16:39 04:39 WBC 7.6 RBC 3.16 L Hgb 8.2 L Hct 24.4 L MCV 77 L MCH 25.9 L MCHC 33.6 RDW 15.1 H Plt Count 243 Seg Neutrophils % 78.7 H Lymphocytes % 13.7 Monocytes % 6.6 Eosinophils % 0.5 Basophils % 0.5 Absolute Neutrophils 6.0 Absolute Lymphocytes 1.0 Absolute Monocytes 0.5 Absolute Eosinophils 0.0 Absolute Basophils 0.0 Retic Count (auto) Absolute Retic Sodium 139.1 Potassium 3.2 L Chloride 99 Carbon Dioxide 32 H Anion Gap 8 BUN 18 Creatinine 0.80 Est GFR ( Amer) > 60 Est GFR (Non-Af Amer) > 60 Glucose 150 H Calcium 8.9 Magnesium 1.9 Iron TIBC % Saturation Ferritin C-Reactive Protein Vitamin B12 Folate 06/28/18 06/28/18 06/28/18 04:39 04:39 04:39 WBC RBC Hgb Hct MCV MCH MCHC RDW Plt Count Seg Neutrophils % Lymphocytes % Monocytes % Eosinophils % Basophils % Absolute Neutrophils Absolute Lymphocytes Absolute Monocytes Absolute Eosinophils Absolute Basophils Retic Count (auto) 1.48 Absolute Retic 0.047 Sodium 138.7 Potassium 3.2 L Chloride 101 Carbon Dioxide 29 Anion Gap 9 BUN 16 Creatinine 0.71 Est GFR ( Amer) > 60 Est GFR (Non-Af Amer) > 60 Glucose 95 Calcium 8.7 Magnesium Iron < 10.1 L TIBC 239 L % Saturation UNABLE TO CALCULATE Ferritin 197.00 C-Reactive Protein 66.2 H Vitamin B12 265.0 Folate 17.70 Impressions: Chest X-Ray 06/27/18 00:00 IMPRESSION: No acute abnormality of the lungs in AP projection. Assessment and Plan - Diagnosis (1) Infection of joint of ankle Is this a current diagnosis for this admission?: Yes Plan: Status post debridement in the OR today. Cultures are growing gram-positive cocci. I am going to change his antibiotic therapy to IV vancomycin at this point. This will be the first day of treatment. Certainly we can narrow this if his cultures are not positive for MRSA (2) Anemia Is this a current diagnosis for this admission?: Yes Plan: He will have a level drawn in the morning. This is likely an anemia of chronic disease (3) Hypokalemia Is this a current diagnosis for this admission?: Yes Plan: This will be repleted today and a level will be drawn in the morning (4) Full code status Is this a current diagnosis for this admission?: Yes - Time Time Spent with patient: 35 or more minutes - Inpatient Certification Medical Necessity: Other - [facility] physicians will continue to follow. We will continue to replete his electrolytes. We will follow-up with his cultures as well.
[2018-06-28] MEDS ORDERED: VANCOMYCIN HCL 0 MG in DEXTROSE 5%-WATER 250 ML IV NR (19:45)
[2018-06-28] MEDS: VANCOMYCIN HCL 1,000 MG in DEXTROSE 5%-WATER 250 ML IV SCH (22:22)
[2018-06-29 05:41] LABS: ABSOLUTE EOSINOPHILS # (AUTO) 0.1 10^3/uL (0.0-0.6); ABSOLUTE LYMPHOCYTES (AUTO) 1.2 10^3/uL (0.5-4.7); ABSOLUTE MONOCYTES (AUTO) 0.5 10^3/uL (0.1-1.4); ABSOLUTE NEUT (AUTO) 6.4 10^3/uL (1.7-8.2); BASOPHILS % (AUTO) 0.5 % (0-2); EOSINOPHILS % (AUTO) 1.1 % (0-6); HEMATOCRIT 25.7 % (37.9-51.0); HEMOGLOBIN 8.7 g/dL (13.5-17.0); LYMPHOCYTES % (AUTO) 14.7 % (13-45); MEAN CORPUSCULAR HGB CONC 33.7 g/dL (32.0-36.0); MEAN CORPUSCULAR VOLUME 77 fl (80-97); MONOCYTES % (AUTO) 6.5 % (3-13); PLATELET COUNT 312 10^3/uL (150-450); RED BLOOD COUNT 3.33 10^6/uL (4.35-5.55); RED CELL DISTRIBUTION WIDTH 14.6 % (11.5-14.0); SEGMENTED NEUTROPHILS % (AUTO) 77.2 % (42-78); TOTAL CELLS COUNTED % (AUTO) 100 %; WHITE BLOOD COUNT 8.3 10^3/uL (4.0-10.5)
[2018-06-29] MEDS: RINGERS SOLUTION,LACTATED 1,000 ML IV PRN (05:49)
[2018-06-29 06:04] LABS: ALBUMIN 2.8 g/dL (3.5-5.0); ANION GAP 7 (5-19); BLOOD UREA NITROGEN 13 mg/dL (7-20); CALCIUM 8.8 mg/dL (8.4-10.2); CARBON DIOXIDE 30 mmol/L (22-30); CHLORIDE 100 mmol/L (98-107); GLUCOSE 91 mg/dL (75-110); PHOSPHORUS 2.8 mg/dL (2.5-4.5); POTASSIUM 3.5 mmol/L (3.6-5.0); SODIUM 137.1 mmol/L (137-145)
[2018-06-29] MEDS ORDERED: FERRIC CARBOXYMALTOSE INJ 750 MG/15 ML VIAL IV ONE (07:34)
[2018-06-29] MEDS ORDERED: TIMOLOL MALEATE MC SCH (08:00)
[2018-06-29] MEDS ORDERED: [UNRECOGNIZED DRUG - OTHER] MC SCH (08:00)
[2018-06-29] MEDS ORDERED: LATANOPROST MC SCH (08:00)
[2018-06-29] MEDS: VANCOMYCIN HCL 1,000 MG in DEXTROSE 5%-WATER 250 ML IV SCH (09:29)
[2018-06-29] MEDS: ACETAMINOPHEN 325 MG TABLET PO PRN ×2 (09:45→17:35)
[2018-06-29] MEDS ORDERED: FERRIC CARBOXYMALTOSE 750 MG in NORMAL SALINE 250 ML IV ONE (10:00)
--- NOTE | 2018-06-29 10:23 | PDOC PROGRESS REPORT ---
Subjective Progress Note for:: 06/29/18 Subjective:: Patient is an 83-year-old male who was admitted to the hospital by the orthopedic surgery service for irrigation and debridement of the right ankle. Labs revealed severe hypokalemia and anemia and we were consulted for medical management. When I saw the patient today he was sleeping but arousable. He states he is having some pain at the site of his surgery. He is somewhat confused and a good review of systems could not be obtained Reason For Visit: S/P I&D RIGHT ANKLE Physical Exam Vital Signs: Temp Pulse Resp BP Pulse Ox 98.3 F 105 H 17 140/69 H 97 06/29/18 08:11 06/29/18 08:11 06/29/18 08:11 06/29/18 08:11 06/29/18 08:11 Intake & Output 06/28/18 06/29/18 06/30/18 06:59 06:59 06:59 Intake Total 5562 4219 265 Output Total 3005 Balance 2557 4219 265 Weight 79 kg 78.2 kg General appearance: PRESENT: no acute distress, well-developed, well-nourished Head exam: PRESENT: atraumatic, normocephalic Eye exam: PRESENT: conjunctiva pink, EOMI, PERRLA. ABSENT: scleral icterus Ear exam: PRESENT: normal external ear exam Mouth exam: PRESENT: moist, tongue midline Neck exam: ABSENT: carotid bruit, JVD, lymphadenopathy, thyromegaly Respiratory exam: PRESENT: clear to auscultation sharonda. ABSENT: rales, rhonchi, wheezes Cardiovascular exam: PRESENT: RRR. ABSENT: diastolic murmur, rubs, systolic murmur GI/Abdominal exam: PRESENT: normal bowel sounds, soft. ABSENT: distended, guarding, mass, organolmegaly, rebound, tenderness Rectal exam: PRESENT: deferred Extremities exam: PRESENT: full ROM. ABSENT: calf tenderness, clubbing, pedal edema Neurological exam: PRESENT: awake, oriented to person, oriented to place. A BSENT: oriented to time, oriented to situation Psychiatric exam: PRESENT: appropriate affect, normal mood. ABSENT: homicidal ideation, suicidal ideation Skin exam: PRESENT: dry, intact, warm. ABSENT: cyanosis, rash Results Laboratory Results: 06/29/18 04:32 06/29/18 04:32 06/29/18 06/29/18 04:32 04:32 WBC 8.3 RBC 3.33 L Hgb 8.7 L Hct 25.7 L MCV 77 L MCH 26.0 L MCHC 33.7 RDW 14.6 H Plt Count 312 Seg Neutrophils % 77.2 Lymphocytes % 14.7 Monocytes % 6.5 Eosinophils % 1.1 Basophils % 0.5 Absolute Neutrophils 6.4 Absolute Lymphocytes 1.2 Absolute Monocytes 0.5 Absolute Eosinophils 0.1 Absolute Basophils 0.0 Sodium 137.1 Potassium 3.5 L Chloride 100 Carbon Dioxide 30 Anion Gap 7 BUN 13 Creatinine 0.75 Est GFR ( Amer) > 60 Est GFR (Non-Af Amer) > 60 Glucose 91 Calcium 8.8 Phosphorus 2.8 Magnesium 1.7 Albumin 2.8 L 06/27/18 12:23 Ankle - Right Gram Stain - Final 06/27/18 12:23 Ankle - Right Wound Culture - Final Staphylococcus Aureus No Anaerobic Organisms 06/27/18 12:22 Ankle - Right Gram Stain - Final Impressions: Chest X-Ray 06/27/18 00:00 IMPRESSION: No acute abnormality of the lungs in AP projection. Assessment and Plan - Diagnosis (1) Infection of joint of ankle Is this a current diagnosis for this admission?: Yes Plan: Wound cultures are growing pansensitive MSSA. I am going to de-escalate his antibiotic therapy to cefazolin today. (2) Anemia Is this a current diagnosis for this admission?: Yes Plan: Anemia panel revealed an iron deficiency anemia. Further workup can be performed for this as an outpatient. I am going to give him a bag of IV iron today. (3) Hypokalemia Is this a current diagnosis for this admission?: Yes Plan: This will be repleted again and a chemistry panel will be drawn in the morning (4) Full code status Is this a current diagnosis for this admission?: Yes - Time Time Spent with patient: 25-34 minutes - Inpatient Certification Medical Necessity: Other - The patient has ongoing need to be in the hospital. He is being managed by the orthopedic surgery service. Certainly he has an infection requiring parenteral antibiotics. [facility] hospitalist will continue to follow along with you.
[2018-06-29] MEDS ORDERED: CEFAZOLIN 2 GM/D5W RTU 2 GM/50 ML RTUPB IV SCH (12:00)
[2018-06-29] MEDS: CEFAZOLIN SODIUM 2 GM in DEXTROSE 5%-WATER 100 ML IV SCH ×2 (14:40→22:06)
[2018-06-30] MEDS: CEFAZOLIN SODIUM 2 GM in DEXTROSE 5%-WATER 100 ML IV SCH ×3 (03:24→13:57)
--- NOTE | 2018-06-30 06:55 | PDOC DISCHARGE SUMMARY ---
General - Admit/Disc Date/PCP Discharge Date: 06/30/18 - Discharge Diagnosis (1) Infection of joint of ankle Is this a current diagnosis for this admission?: Yes - Additional Information Resuscitation Status: Full Code Home Medications: Indomethacin [Indomethacin ER] 75 mg PO DAILY 06/24/18 Timolol Maleate/Latanoprost/Pf [Timolol 0.5%-Latanopros 0.005%] 5 ml OP DAILY 06/24/18 Ibuprofen [Motrin 400 mg Tablet] 400 mg PO TID 06/27/18 History of Present Illness History of Present Illness: SHAD BLANTON is a 83 year old male Hospital Course Hospital Course: Patient is admitted through the operating where he undergoes an I&D of the right ankle. Subsequent cultures have grown a pansensitive staph aureus. Patient's been switched from empiric Rocephin to vancomycin and ultimately to Ancef. Physical Exam Vital Signs: Temp Pulse Resp BP Pulse Ox 36.6 C 100 21 H 164/86 H 97 06/29/18 23:22 06/29/18 23:22 06/29/18 23:22 06/29/18 23:22 06/29/18 23:22 Intake & Output 06/28/18 06/29/18 06/30/18 06:59 06:59 06:59 Intake Total 5562 4219 2290 Output Total 3005 Balance 2557 4219 2290 Weight 79 kg 78.2 kg 79.1 kg General appearance: PRESENT: no acute distress Head exam: PRESENT: normocephalic Respiratory exam: PRESENT: unlabored Cardiovascular exam: PRESENT: RRR Vascular exam: PRESENT: normal capillary refill GI/Abdominal exam: PRESENT: soft Rectal exam: PRESENT: deferred Extremities exam: PRESENT: other - Right lower extremity posterior plaster splint. Toes are exposed. Minimal swelling. Distal neurovascular examination is intact. Neurological exam: PRESENT: alert, awake, oriented to person, oriented to place, oriented to time, oriented to situation. ABSENT: motor sensory deficit Psychiatric exam: PRESENT: appropriate affect, normal mood. ABSENT: homicidal ideation, suicidal ideation Skin exam: PRESENT: dry, intact, warm. ABSENT: cyanosis, rash Results Laboratory Results: 06/29/18 04:32 06/29/18 04:32 06/27/18 12:22 Ankle - Right Gram Stain - Final 06/27/18 12:23 Ankle - Right Gram Stain - Final 06/27/18 12:23 Ankle - Right Wound Culture - Final Staphylococcus Aureus No Anaerobic Organisms Impressions: Chest X-Ray 06/27/18 00:00 IMPRESSION: No acute abnormality of the lungs in AP projection. Status: Imported from PACS Qualifiers - * PATIENT BEING DISCHARGED WITH ANY OF THE FOLLOWING DIAGNOSIS: No VTE patient discharged on overlapping Therapy?: Yes Plan Discharge Plan: Patient be discharged home on 2 weeks of IV Ancef. PICC line to be placed. Follow-up with Dr. Cam and [facility] for surgery for wound check on Wednesday. Time Spent: Less than 30 Minutes
[2018-06-30] MEDS: ACETAMINOPHEN 325 MG TABLET PO PRN (07:04)
[2018-06-30 08:26] VITALS: BP 128/86
--- NOTE | 2018-06-30 09:34 | RADIOLOGY REPORT (SQ) ---
EXAM DESCRIPTION: PICC INSERTION; FLUORO/CV PLACEMENT; U/S GUIDE FOR VASCULAR ACCESS COMPLETED DATE/TIME: 06/30/2018 8:53 am REASON FOR STUDY: Home on IV antibiotics; IV ABX M25.571 PAIN IN RIGHT ANKLE AND JOINTS OF RIGHT FO OT D46.4 REFRACTORY ANEMIA, UNSPECIFIED COMPARISON: None. FLUOROSCOPY TIME: 40 seconds 1 fluoroscopic and 1 ultrasound image saved to PACS. TECHNIQUE: Fluoroscopic and ultrasound guided PICC placement. LIMITATIONS: None. PROCEDURE: After written consent and assessment were obtained, the patient was brought into the fluo roscopy room and placed supine on the table. Ultrasound evaluation of potential access sites were per formed. After successfully identifying a patent left basilic vein, the left arm was prepped and drape d in a sterile fashion along with the ultrasound probe. The entry site was anesthetized with 1% lidoc tiffani. A 21 gauge 7 cm needle was advanced through the skin and into the basilic vein under live ultra sound guidance. An ultrasound image was saved to PACS confirming access site. A .018 guide wire was then inserted through the needle and into the venous system. The needle was then removed and an 11 b lade scalpel was used to make a 1cm skin incision. A 5 fr peel-away sheath was advanced over the wir e and into the venous system. A measurement was then made using the existing wire and live fluoroscop ic guidance. The wire was then removed and trimmed. The PICC was advanced through the peel-away sheat h and into the venous system. The peel-away sheath was removed and the catheter was adhered to the pa tients arm with a stat lock. The catheter was then aspirated and flushed and a sterile bandage was pl aced over the access site. A fluoroscopic spot image was saved to PACS confirming the catheter tip w ithin the superior vena cava. IMPRESSION: SUCCESSFUL PLACEMENT OF A 5 FR DUAL LUMEN 47 CM PICC IN THE LEFT BASILIC VEIN. COMMENT: Patient medication list reviewed: Yes- Quality ID# 130:Eligible professional attests to doc umenting in the medical record they obtained, updated, or reviewed the patient's current medications. . Quality ID 145: Final reports for procedures using fluoroscopy that document radiation exposure allan jamse, or exposure time and number of fluorographic images (if radiation exposure indices are not avail able) Quality ID #76: The patient was prepped and draped using maximum sterile barrier technique including cap, mask, sterile gown, sterile gloves, a large sterile sheet, hand hygiene, and 2% Chlorhexidine fo r cutaneous antisepsis. When ultrasound is used, sterile ultrasound techniques are followed requiring sterile gel and sterile probes. TECHNICAL DOCUMENTATION: JOB ID: [id number] [employer]- All Rights Reserved rev-08/20 Reading location - IP/workstation name: [email or web address]
== END 2018-06-30 16:07 | disposition home or self-care (01) | DRG 494 ==
LOC: INOR 08:52 → OROUT 08:52 → UNDOADMIN 08:52 → 4N 08:52 → EDSTATUS 11:30 → 4N 15:59 → OROUT 15:59 → 4N 06-30 16:07 → OROUT 06-30 16:07
PROVIDERS: ADMIT Orthopaedic Surgery; ATTEND Orthopaedic Surgery
PROC: 02HV33Z Insertion of Infusion Device into Superior Vena Cava, Percutaneous Approach (ICD-10-PCS; 2018-06-27)
PROC: B548ZZA Ultrasonography of Superior Vena Cava, Guidance (ICD-10-PCS; 2018-06-27)
PROC: B518ZZA Fluoroscopy of Superior Vena Cava, Guidance (ICD-10-PCS; 2018-06-27)
PROC: 0SBF0ZZ Excision of Right Ankle Joint, Open Approach (ICD-10-PCS; principal; 2018-06-27 11:30)
DX: M00.071 Staphylococcal arthritis, right ankle and foot (principal); E87.6 Hypokalemia; D50.9 Iron deficiency anemia, unspecified; Z82.49 Family history of ischemic heart disease and other diseases of the circulatory system
CPT/HCPCS: 01470; 36415; 36569; 71045; 76937; 77001; 80048; 80069; 81001; 82607; 82728; 82746; 83540; 83550; 83735; 84132; 85025; 85045; 85652; 86140; 87070; 87075; 87077; 87186; 87205; 93005; 93010; J0131; J0690; J0696; J1439; J1642; J2250; J2704; J3010; J3370; J3480; J3490; J7050; J7060; J7120

== ENCOUNTER 2018-07-11 20:03 | Emergency (ER) | payer MEDICARE, BC ==
--- NOTE | 2018-07-11 20:17 | ER Document Report ---
ED Medical Screen (RME) - General Chief Complaint: Abnormal Lab Results Stated Complaint: ABNORMAL LABS Time Seen by Provider: 07/11/18 20:14 Mode of Arrival: Wheelchair Information source: Patient, Relative Notes: Patient is an 83-year-old male who presents emergency department with chief complaint of abnormal labs. Patient reports his home health nurse came and jem labs, his potassium is 2.4 and his calcium was 6.7 just prior to arrival. He states that he has no symptoms other than some fatigue. Patient currently has a PICC line in place and is getting antibiotics every 6 hours for a foot infection. I have greeted and performed a rapid initial assessment of this patient. A comprehensive ED assessment and evaluation of the patient, analysis of test results and completion of the medical decision making process will be conducted by additional ED providers. Dictation of this chart was performed using voice recognition software; therefore, there may be some unintended grammatical errors. TRAVEL OUTSIDE OF THE [place] IN LAST 30 DAYS: No - Related Data Allergies/Adverse Reactions: No Known Allergies Allergy (Unverified 04/21/18 16:49) Past Medical History - Past Medical History Cardiac Medical History: Denies: Hx Coronary Artery Disease, Hx Heart Attack, Hx Hypertension Pulmonary Medical History: Denies: Hx Asthma, Hx Bronchitis, Hx COPD, Hx Pneumonia Neurological Medical History: Denies: Hx Cerebrovascular Accident, Hx Seizures Renal/ Medical History: Reports: Hx Kidney Stones. Denies: Hx Peritoneal Dialysis Musculoskeltal Medical History: Denies Hx Arthritis - Immunizations Hx Diphtheria, Pertussis, Tetanus Vaccination: Yes Physical Exam - Vital signs Vitals: Temp Pulse Resp BP Pulse Ox 98.3 F 102 H 19 136/80 H 95 07/11/18 20:09 07/11/18 20:09 07/11/18 20:09 07/11/18 20:09 07/11/18 20:09 Course - Vital Signs Vital signs: Temp Pulse Resp BP Pulse Ox 98.3 F 102 H 19 136/80 H 95 07/11/18 20:09 07/11/18 20:09 07/11/18 20:09 07/11/18 20:09 07/11/18 20:09
[2018-07-11 21:03] LABS: ABSOLUTE EOSINOPHILS # (AUTO) 0.3 10^3/uL (0.0-0.6); ABSOLUTE LYMPHOCYTES (AUTO) 1.4 10^3/uL (0.5-4.7); ABSOLUTE MONOCYTES (AUTO) 0.5 10^3/uL (0.1-1.4); ABSOLUTE NEUT (AUTO) 4.6 10^3/uL (1.7-8.2); BASOPHILS % (AUTO) 0.5 % (0-2); EOSINOPHILS % (AUTO) 4.3 % (0-6); HEMATOCRIT 32.7 % (37.9-51.0); HEMOGLOBIN 10.5 g/dL (13.5-17.0); LYMPHOCYTES % (AUTO) 19.7 % (13-45); MEAN CORPUSCULAR HEMOGLOBIN 26.1 pg (27.0-33.4); MEAN CORPUSCULAR HGB CONC 32.2 g/dL (32.0-36.0); MONOCYTES % (AUTO) 7.9 % (3-13); PLATELET COUNT 304 10^3/uL (150-450); RED BLOOD COUNT 4.04 10^6/uL (4.35-5.55); RED CELL DISTRIBUTION WIDTH 18.5 % (11.5-14.0); SEGMENTED NEUTROPHILS % (AUTO) 67.6 % (42-78); TOTAL CELLS COUNTED % (AUTO) 100 %; WHITE BLOOD COUNT 6.8 10^3/uL (4.0-10.5)
[2018-07-11 21:31] LABS: ALANINE AMINOTRANSFERASE 18 U/L (21-72); ALBUMIN 3.7 g/dL (3.5-5.0); ALKALINE PHOSPHATASE 85 U/L (38-126); ANION GAP 9 (5-19); ASPARTATE AMINO TRANSFERASE 19 U/L (17-59); BILIRUBIN,DIRECT 0.3 mg/dL (0.0-0.4); BILIRUBIN,TOTAL 0.4 mg/dL (0.2-1.3); BLOOD UREA NITROGEN 17 mg/dL (7-20); CALCIUM 9.4 mg/dL (8.4-10.2); CARBON DIOXIDE 34 mmol/L (22-30); CHLORIDE 99 mmol/L (98-107); GLUCOSE 116 mg/dL (75-110); POTASSIUM 3.4 mmol/L (3.6-5.0); SODIUM 141.6 mmol/L (137-145); TOTAL PROTEIN 6.4 g/dL (6.3-8.2)
[2018-07-11 21:48] LABS: MEAN CORPUSCULAR VOLUME 81 fl (80-97)
--- NOTE | 2018-07-11 22:29 | ER Document Report ---
ED General - General Chief Complaint: Abnormal Lab Results Stated Complaint: ABNORMAL LABS Time Seen by Provider: 07/11/18 20:14 Mode of Arrival: Wheelchair Information source: Patient TRAVEL OUTSIDE OF THE [place] IN LAST 30 DAYS: No - HPI Notes: Patient presents to the emergency department after after having blood drawn by home health and home health reporting a low potassium and low calcium level. Here to have lab values rechecked. Patient does report having some lightheadedness over the past 2 days. Parents normal diet and normal appetite does have some nausea but without vomiting. Denies chest pain or shortness of breath. - Related Data Allergies/Adverse Reactions: No Known Allergies Allergy (Unverified 04/21/18 16:49) Past Medical History - General Information source: Patient, Relative - Social History Smoking Status: Never Smoker Family History: Hypertension Patient has suicidal ideation: No Patient has homicidal ideation: No - Past Medical History Cardiac Medical History: Reports: None Denies: Hx Coronary Artery Disease, Hx Heart Attack Pulmonary Medical History: Reports: None Denies: Hx Asthma, Hx Bronchitis, Hx COPD, Hx Pneumonia EENT Medical History: Reports: None Neurological Medical History: Reports: None. Denies: Hx Cerebrovascular Accident, Hx Seizures Endocrine Medical History: Reports: None Renal/ Medical History: Reports: Hx Kidney Stones. Denies: Hx Peritoneal Dialysis Malignancy Medical History: Reports None GI Medical History: Reports: None Musculoskeletal Medical History: Denies Hx Arthritis Other: Patient had a debridement of the right foot by Dr. Cam on June 27 2018 and was admitted to the hospital at [place]. He is a patient of home health and receives Ancef 2 g every 6 hours via his PICC line Other: Patient has a clean dry and intact dressing to the right lower extremity in a walking boot. Psychiatric Medical History: Reports: None Traumatic Medical History: Reports: None Infectious Medical History: Reports: None Past Surgical History: Reports: Hx Orthopedic Surgery - R foot - Immunizations Hx Diphtheria, Pertussis, Tetanus Vaccination: Yes Review of Systems - Review of Systems Constitutional: No symptoms reported EENT: No symptoms reported Cardiovascular: No symptoms reported Respiratory: No symptoms reported Gastrointestinal: Nausea Genitourinary: No symptoms reported Male Genitourinary: No symptoms reported Skin: No symptoms reported Hematologic/Lymphatic: No symptoms reported Neurological/Psychological: Confusion Physical Exam - Vital signs Vitals: Temp Pulse Resp BP Pulse Ox 98.3 F 102 H 19 136/80 H 95 07/11/18 20:09 07/11/18 20:09 07/11/18 20:09 07/11/18 20:09 07/11/18 20:09 - General General appearance: Appears well, Alert - HEENT Head: Normocephalic Eyes: Normal Pupils: PERRL - Respiratory Respiratory status: No respiratory distress Breath sounds: Normal - Cardiovascular Rhythm: Regular - Abdominal Inspection: Normal Distension: No distension Bowel sounds: Normal Tenderness: Nontender Organomegaly: No organomegaly - Extremities General upper extremity: Normal inspection General lower extremity: Normal inspection - Neurological Neuro grossly intact: Yes Jasmina Coma Scale Eye Opening: Spontaneous [place] Coma Scale Verbal: Oriented [place] Coma Scale Motor: Obeys Commands Jasmina Coma Scale Total: 15 Speech: Normal Cranial nerves: Normal Cerebellar coordination: Normal Motor strength normal: LUE, RUE, LLE, RLE Additional motor exam normals: Equal clinical psychologist licensed - Psychological Associated symptoms: Normal affect - Skin Skin Temperature: Warm Skin Moisture: Dry Skin Color: Normal Course - Re-evaluation Re-evalutation: 07/11/18 22:38 Discussed lab work with family and patient. Aware of normal lab results. 07/12/18 03:25 07/12/18 03:33 This provider was in the room multiple times and it was noted that the patient had a heart rate in the 90s and regular respiratory rate was between 16 and 18 and pulse ox was continuously reading 96-97% on room air. As a result I believe the final vital signs are inaccurate. During evaluation patient denies pain or any other complaints. Initially patient had stated he has some lightheadedness over the past few days, but patient and states that over the past 24 hours he seemed to be more himself. Patient with no current complaints. A neuro exam was performed by myself and no deficits or abnormalities were found. Patient and family in agreement with discharge plan to follow-up with primary care for follow-up lab work. Patient educated to return if having any shortness of breath chest pain or worsening of any symptoms to include worsening or mental status or acute change. 07/12/18 06:53 - Vital Signs Vital signs: Temp Pulse Resp BP Pulse Ox 98.3 F 102 H 21 H 146/86 H 88 L 07/11/18 20:09 07/11/18 20:09 07/11/18 23:01 07/11/18 23:01 07/11/18 23:01 - Laboratory Result Diagrams: 07/11/18 20:40 07/11/18 20:40 Laboratory results interpreted by me: 07/11/18 07/11/18 20:40 20:40 RBC 4.04 L Hgb 10.5 L Hct 32.7 L MCH 26.1 L RDW 18.5 H Potassium 3.4 L Carbon Dioxide 34 H Glucose 116 H ALT 18 L - EKG Interpretation by Me Additional EKG results interpreted by me: 07/11/18 22:43 Patient had an EKG obtained it was noted in sinus rhythm at a rate of 93 QTC at 503 and a PVC and a PAC was noted on the EKG. Discharge - Discharge Clinical Impression: Abnormal laboratory test Condition: Stable Disposition: HOME, SELF-CARE Additional Instructions: Today you were seen in the emergency department for repeat potassium and calcium level. Both of these lab values were found to be normal at today's visit. Please follow-up with your primary care physician to have these labs rechecked. If you have any change in condition such as chest pain, shortness of breath, confusion, or any other concerning signs or symptoms please go to your nearest emergency department.
[2018-07-11 23:05] VITALS: BP 146/86
--- NOTE | 2018-07-11 23:59 | EKG REPORT ---
SEVERITY:- ABNORMAL ECG - SINUS RHYTHM RIGHT BUNDLE BRANCH BLOCK : Confirmed by: Caro Mcguire 11-Jul-2018 23:59:17
== END 2018-07-11 23:24 | disposition home or self-care (01) ==
LOC: ER 20:03
DX: Z04.89 Encounter for examination and observation for other specified reasons (principal); I49.3 Ventricular premature depolarization; I49.1 Atrial premature depolarization; R42 Dizziness and giddiness; R11.0 Nausea; R41.0 Disorientation, unspecified; Z98.890 Other specified postprocedural states; Z79.2 Long term (current) use of antibiotics
CPT/HCPCS: 36415; 80053; 83735; 85025; 93005; 93010; 99283

== ENCOUNTER → 2018-09-01 | Outpatient (CLI) | payer MEDICARE, BC ==
[2018-09-01 13:06] LABS: ABSOLUTE EOSINOPHILS # (AUTO) 0.1 10^3/uL (0.0-0.6); ABSOLUTE LYMPHOCYTES (AUTO) 1.3 10^3/uL (0.5-4.7); ABSOLUTE MONOCYTES (AUTO) 0.2 10^3/uL (0.1-1.4); ABSOLUTE NEUT (AUTO) 2.4 10^3/uL (1.7-8.2); BASOPHILS % (AUTO) 0.8 % (0-2); EOSINOPHILS % (AUTO) 2.7 % (0-6); HEMATOCRIT 33.9 % (37.9-51.0); HEMOGLOBIN 11.1 g/dL (13.5-17.0); LYMPHOCYTES % (AUTO) 31.8 % (13-45); MEAN CORPUSCULAR HEMOGLOBIN 27.7 pg (27.0-33.4); MEAN CORPUSCULAR HGB CONC 32.9 g/dL (32.0-36.0); MEAN CORPUSCULAR VOLUME 84 fl (80-97); MONOCYTES % (AUTO) 5.7 % (3-13); PLATELET COUNT 265 10^3/uL (150-450); RED BLOOD COUNT 4.02 10^6/uL (4.35-5.55); TOTAL CELLS COUNTED % (AUTO) 100 %; WHITE BLOOD COUNT 4.1 10^3/uL (4.0-10.5)
[2018-09-01 13:22] LABS: ANION GAP 10 (5-19); BLOOD UREA NITROGEN 19 mg/dL (7-20); CALCIUM 9.9 mg/dL (8.4-10.2); CARBON DIOXIDE 30 mmol/L (22-30); CHLORIDE 105 mmol/L (98-107); GLUCOSE 113 mg/dL (75-110); POTASSIUM 4.1 mmol/L (3.6-5.0); SODIUM 145.4 mmol/L (137-145)
[2018-09-01 13:24] LABS: C-REACTIVE PROTEIN < 5.0 mg/L (<10.0)
[2018-09-01 13:44] LABS: ERYTHROCYTE SEDIMENTATION RATE 17 mm/hr (0-20)
== END ==
LOC: OD 12:19
PROVIDERS: ATTEND Orthopaedic Surgery
DX: M25.571 Pain in right ankle and joints of right foot (principal)
CPT/HCPCS: 36415; 80048; 85025; 85652; 86140